=== PATIENT | female | born 2000 | race African-American/Black ===

== ENCOUNTER → 2021-11-02 07:33 | Outpatient (CLI) | payer BC, SELFPAY ==
[2021-11-02 20:22] LABS: SARS-CoV-2 RNA PCR Negative
== END ==
PROVIDERS: PCP Emergency Medicine; Visit Provider Emergency Medicine
DX: R50.9 Fever, unspecified (principal); Z20.822 Contact with and (suspected) exposure to COVID-19
CPT/HCPCS: C9803; U0003; U0005